=== PATIENT | female | born 1945 | race Asian ===

== ENCOUNTER → 2017-02-28 | Outpatient (CLI) | payer OTHER ==
[2017-02-28 10:05] LABS: BASOPHIL % 0.3 % (0-2); PLATELET COUNT 209 x10^3mcL (130-400)
[2017-02-28 10:11] LABS: RED CELL DISTRIBUTION WIDTH 15.3 % (11.5-14.5)
[2017-02-28 10:56] LABS: ALBUMIN 3.5 g/dL (3.4-5.0); ALKALINE PHOSPHATASE 56 U/L (46-116); ALT/SGPT 38 U/L (14-59); AST/SGOT 33 U/L (15-37); BILIRUBIN DIRECT 0.13 mg/dL (0.0-0.2); BILIRUBIN TOTAL 0.35 mg/dL (0.20-1.00); CARBON DIOXIDE 29.8 mmol/L (21-32); CHLORIDE SERUM 105 mmol/L (98-107); FREE T4 0.98 ng/dL (0.76-1.46); GAMMA GLUTAMYL TRANSPEPTIDASE 125 U/L (5-85); GLUCOSE SERUM 157 mg/dL (74-106); HDL CHOLESTEROL 42 mg/dL (40-60); POTASSIUM SERUM 4.3 mmol/L (3.5-5.1); SODIUM SERUM 139 mmol/L (136-145); TOTAL PROTEIN, SERUM 7.2 g/dL (6.4-8.2)
[2017-02-28 10:57] LABS: CHOLESTEROL 314 mg/dL (<200); CHOLESTEROL/HDL RATIO 7.5; TRIGLYCERIDES 824 mg/dL (<150)
== END | disposition home or self-care (01) ==
LOC: LB 09:36
DX: R94.5 Abnormal results of liver function studies (principal); K74.60 Unspecified cirrhosis of liver; K76.0 Fatty (change of) liver, not elsewhere classified
CPT/HCPCS: 84439